=== PATIENT | male | born 1970 ===

== ENCOUNTER 2024-01-30 14:15 | Emergency (ER) | payer OTHER | END 2024-01-30 15:54 | disposition home or self-care (01) | LOC: DL.ED 14:15 | DX: S63.612A Unspecified sprain of right middle finger, initial encounter (principal); Z86.16 Personal history of COVID-19; X50.1XXA Overexertion from prolonged static or awkward postures, initial encounter | CPT/HCPCS: 73140-F7; 99282; 99283 ==